=== PATIENT | female | born 1960 | race Caucasian/White ===

== ENCOUNTER 2017-07-21 18:58 | Inpatient (IN) | payer BC, MEDICARE ==
--- NOTE | 2017-07-21 20:05 | ED Physician Chart ---
ED Chief Complaint/HPI - Patient Information Date Seen:: 07/21/17 Time Seen:: 20:12 Chief Complaint:: Chest pain History of Present Illness:: 57 yo female developed neck tightness, right chest pain with pain radiating to back about 2 hours after playing golf and 3 hours prior to ER visit. The patient took nitroglycerin and chest subsided when she presented to ER. She had another episode of chest pain 4 months ago with a negative cardiac work up. Allergies:: Allergies Allergy/AdvReac Type Severity Reaction Status Date / Time No Known Allergies Allergy Verified 07/21/17 19:51 Vitals:: Vital Signs - 8 hr 07/21/17 19:22 Temp 97.6 F HR 101 RR 16 BP 102/62 O2 Sat % 97 ED Review of Systems - Review of Systems General/Constitutional: No fever, No chills Skin: No skin lesions Head: No headache Eyes: No pain ENT: No earache Neck: No neck pain Cardio Vascular: Chest pain Pulmonary: SOB GI: No nausea, No vomiting Musculoskeletal: No bone or joint pain Psychiatric: No prior psych history ED Past Medical History - Past Medical History Past Medical History: HTN, Thyroid disorder, Other (tachycardia, rheumatoid arthritis) Social History: Non Smoker, No Alcohol, No Drug Use Surgical History: Cholecystectomy, other (left total knee replacement, right hip replacement , right shoulder surgery) Family Medical History - Family Member Mother History Unknown: Yes ED Physical Exam - Physical Examination General/Constitutional: Awake, Alert Head: Atraumatic Eyes: PERRL, EOMI Skin: No skin lesions ENMT: Nasal exam nl Other Neck comments:: No significant enlargement of thyroid Respiratory: Clear to Auscultation, No Wheeze/Rhonchi/Rales Cardio Vascular: RRR, No murmur, gallop, rubs, NL S1 S2 GI: No tenderness/rebounding/guarding Extremities: normal strength in all extremities Neuro/Psych: No focal deficits ED Labs/Radiology/EKG Results - Radiology Results Results: CXR: No consolidation ED Assessment - Assessment General Assessment: Chest pain to rule out ACS Hyperlipidemia Assessment/Comments:: CBC, CMP, BNP, Trop I CXR, EKG Admit patient to tele for further work up ED Septic Shock - . Is Septic Shock (SBP<90, OR Lactate>4 mmol\L) present?: No - <6hrs of presentation: Vital Signs: Vital Signs - 8 hr 07/21/17 19:22 Temp 97.6 F HR 101 RR 16 BP 102/62 O2 Sat % 97 ED Reassessment (Disposition) - Reassessment Reassessment Condition:: Improved - Patient Disposition Discharge/Transfer:: Acute Care w/in this hosp Admitting Medical Physician:: Naya Joshi ED Discharge Plan - Patient Disposition Admit/Discharge/Transfer: Acute Care w/in this hosp Condition at Disposition: Improved
[2017-07-21 20:18] LABS: % BASOPHILS 0.5 % (0.0-2.0); % EOSINOPHILS 0.8 % (0.0-5.0); % LYMPHOCYTES 23.7 % (20.0-50.0); % MONOCYTES 8.2 % (2.0-10.0); % NEUTROPHILS 66.8 % (40.0-80.0); BASOPHILE ABSOLUTE 0.1 Th/cumm (0-0.2); EOSINOPHILE ABSOLUTE 0.1 Th/cmm (0.1-0.4); HEMATOCRIT 44.6 % (41.0-60); HEMOGLOBIN 14.9 gm/dL (12-16); LYMPHOCYTE ABSOLUTE 2.8 Th/cmm (1.5-3.0); MEAN CELL VOLUME 96.3 fl (81-100); MEAN CORPUSCULAR HEMOGLOBIN 32.3 pg (27.0-31.0); MEAN CORPUSCULAR HGB CONC 33.5 pg (28.0-36.0); MEAN PLATELET VOLUME 6.6 fl; NEUTROPHILE ABSOLUTE 7.9 Th/cmm (1.8-8.0); PLATELET COUNT 282 Th/cmm (150-400); RED BLOOD COUNT 4.63 Mil/cmm (3.80-5.10); RED CELL DISTRIBUTION WIDTH 12.3 % (11.5-20.0); WHITE BLOOD COUNT 11.9 Th/cmm (4.8-10.8)
[2017-07-21 20:33] LABS: ALB/GLOB RATIO 2.4 (1.0-1.8); ALBUMIN 4.5 gm/dL (3.7-5.3); ALKALINE PHOSPHATASE 55 U/L (34-104); BILIRUBIN,TOTAL 0.3 mg/dL (0.3-1.0); BUN - UREA NITROGEN 15 mg/dL (7-25); CALCIUM SERUM 9.4 mg/dL (8.6-10.3); CARBON DIOXIDE 24.6 mEq/L (21.0-31.0); CHLORIDE 105 mEq/L (98-107); CHOLESTEROL 239 mg/dL (<200); CREATININE - SERUM 0.9 mg/dL (0.6-1.2); GFR AFRICAN-AMERICAN > 60.0 ml/min (>90); GFR NON AFRICAN-AMERICAN > 60.0 ml/min; GLUCOSE 126 mg/dL (70-105); HDL -HIGH DENSITY LIPOPROTEIN 65 mg/dL (23-92); POTASSIUM SERUM 3.6 mEq/L (3.5-5.1); SGOT 13 U/L (13-39); SGPT/ALT 13 U/L (7-52); SODIUM SERUM 137 mEq/L (136-145); TOTAL PROTEIN,SERUM 6.4 gm/dL (6.0-8.3); TRIGLYCERIDES 297 mg/dL (<150)
[2017-07-21 21:07] LABS: URINE MICROSCOPIC INDICATED? YES; URINE SOURCE RANDOM
[2017-07-21 21:19] LABS: URINE BILIRUBIN NEGATIVE (NEGATIVE); URINE BLOOD SMALL (NEGATIVE); URINE GLUCOSE (UA) NEGATIVE (NEGATIVE); URINE KETONE NEGATIVE (NEGATIVE); URINE LEUKOCYTE ESTERASE NEGATIVE (NEGATIVE); URINE NITRATE NEGATIVE (NEGATIVE); URINE PROTEIN NEGATIVE (NEGATIVE); URINE UROBILINOGEN 0.2 E.U./dL (0.2 - 1.0)
[2017-07-21] MEDS ORDERED: Sodium Chloride 0.9% 1,000 ML IV ONE (21:28)
[2017-07-21] MEDS ORDERED: cefTRIAXone 1 GM in Sodium Chloride 0.9% 50 ML IV ONE (21:28)
[2017-07-21 21:38] LABS: URINE CLARITY CLEAR (CLEAR); URINE COLOR YELLOW
[2017-07-21 21:42] LABS: URINE BACTERIA NONE SEEN /hpf (NONE SEEN); URINE EPITHELIAL CELLS NONE SEEN /lpf (FEW); URINE RBC NONE SEEN /hpf (0-5); URINE WBC NONE SEEN /hpf (0-5)
[2017-07-21] MEDS ORDERED: Morphine Sulfate 2 mg/mL 1mL Syr IVP PRN (23:08)
[2017-07-22 04:08] LABS: % BASOPHILS 0.4 % (0.0-2.0); % EOSINOPHILS 1.8 % (0.0-5.0); % LYMPHOCYTES 37.4 % (20.0-50.0); % MONOCYTES 10.6 % (2.0-10.0); % NEUTROPHILS 49.8 % (40.0-80.0); EOSINOPHILE ABSOLUTE 0.1 Th/cmm (0.1-0.4); HEMOGLOBIN 13.4 gm/dL (12-16); LYMPHOCYTE ABSOLUTE 3.1 Th/cmm (1.5-3.0); MEAN CORPUSCULAR HEMOGLOBIN 32.3 pg (27.0-31.0); MEAN CORPUSCULAR HGB CONC 33.6 pg (28.0-36.0); MEAN PLATELET VOLUME 6.5 fl; MONOCYTE ABSOLUTE 0.9 Th/cmm (0.3-1.0); NEUTROPHILE ABSOLUTE 4.1 Th/cmm (1.8-8.0); PLATELET COUNT 256 Th/cmm (150-400); RED BLOOD COUNT 4.14 Mil/cmm (3.80-5.10); RED CELL DISTRIBUTION WIDTH 12.2 % (11.5-20.0)
[2017-07-22 04:13] LABS: WHITE BLOOD COUNT 8.2 Th/cmm (4.8-10.8)
[2017-07-22 04:14] LABS: HEMATOCRIT 39.8 % (41.0-60)
[2017-07-22 04:21] LABS: ANION GAP 9.1 (7.0-16.0); BUN - UREA NITROGEN 13 mg/dL (7-25); CALCIUM SERUM 8.4 mg/dL (8.6-10.3); CHLORIDE 109 mEq/L (98-107); CREATININE - SERUM 0.7 mg/dL (0.6-1.2); CREATININE KINASE 44 U/L (30-223); GFR AFRICAN-AMERICAN > 60.0 ml/min (>90); GFR NON AFRICAN-AMERICAN > 60.0 ml/min; GLUCOSE 91 mg/dL (70-105); POTASSIUM SERUM 4.1 mEq/L (3.5-5.1); SODIUM SERUM 139 mEq/L (136-145)
--- NOTE | 2017-07-22 08:19 | Diagnostic Imaging Report ---
Portable chest x-ray Time: 2015 hours History: Chest pain Allowing for portable technique the heart size is normal. No focal pulmonary parenchymal processes. No hilar or mediastinal abnormalities. Impression: No acute abnormalities.
[2017-07-22] MEDS: Atorvastatin Calcium 10 MG TAB PO SCH (08:58)
[2017-07-22] MEDS: Aspirin 81mg Chewable Tab PO SCH (08:59)
[2017-07-22] MEDS ORDERED: ESTROGENS CONJUGATED 0.9 MG PO SCH (09:00)
[2017-07-22] MEDS ORDERED: PROGESTERONE MICRONIZED 100 MG PO SCH (09:00)
--- NOTE | 2017-07-22 10:27 | History & Physical ---
ADMIT DATE: 07/22/2017 CHIEF COMPLAINT: Neck tightness, right-sided chest pain with radiation to the back and generalized weakness and tiredness. HISTORY OF PRESENT ILLNESS: The patient is a 57-year-old lady with history of hypertension, osteoarthritis/rheumatoid arthritis, history of thyroid goiter, tachycardia who was in her usual state of health until yesterday when she started experiencing the above-mentioned complaints about 2 hours after playing a round of golf. The patient was apparently eating when she started feeling right-sided neck tightness followed by chest pressure and tightness radiating to her right back. She also felt extremely weak and tachycardic, which she on occasions experiences. The patient was given nitro sublingual with improvement in her symptoms. [place] and is currently visiting family members. She did have a similar episode back in [place] about 4 months ago. At that time, she experienced chest pain, 10/10 and ended up having a full cardiac workup, echo and stress test which were negative. She did not have an angiogram at that time. Ten years ago, she also had some chest pains, and at that time she had an angiogram, which was negative. She was diagnosed with cholecystitis and underwent a cholecystectomy. The pertinent findings on admission include a slightly elevated white count of 11.9 and troponins, which are negative x 2 sets. The patient has been admitted to the ICU for close monitoring. She normally takes metoprolol for her tachycardia, but she admits not taking it for a day since she traveled from out of [facility] and was without medications for about a day. PAST MEDICAL HISTORY: As noted above, history of rheumatoid arthritis, hypertension, tachycardic, thyroid disorder with goiter. PAST SURGICAL HISTORY: Cholecystectomy about 10 years ago. She also had a left total knee replacement, right hip replacement and right shoulder surgery. FAMILY HISTORY: Significant for a brother having cardiac disease diagnosed at age 50. He underwent a stent placement. Her father also has been diagnosed with atrial fibrillation. SOCIAL HISTORY: No tobacco, ETOH or illicit drug usage. She used to work as counter person. ALLERGIES: NKDA. OUTPATIENT MEDICATIONS: Tylenol 325 q. 6h. p.r.n. for pain, Premarin 0.9 daily, lorazepam 1 mg b.i.d., metoprolol 200 mg at bedtime, nortriptyline 50 mg at bedtime, Progesterone 100 mg daily, tramadol 50 mg q. 6h. p.r.n. for severe pain, and Effexor XR 300 mg at bedtime. REVIEW OF SYSTEMS: CONSTITUTIONAL: No fever or chills, no recent weight loss. CARDIAC: Please refer to the HPI. PULMONARY: No cough, no phlegm production. GASTROINTESTINAL: No bowel habit changes. GENITOURINARY: No bladder habit changes including no UTI symptomatology. NEUROLOGIC: No changes in vision, no headaches, no syncopal episodes. PHYSICAL EXAMINATION: VITAL SIGNS: Temperature 97.6, pulse 68-74, respirations 13-14, BP 127/76, satting 98% on room air. GENERAL: Well-developed, well-nourished lady, currently eating lunch, not in acute distress, speaking in full sentences. HEAD AND NECK: Normocephalic, atraumatic. Pupils are reactive to light. Extraocular movements are intact. NECK: There is no JVD or LAD. CARDIOVASCULAR: Regular rate and rhythm without any murmurs. RESPIRATORY: Lungs are clear to auscultation bilaterally. EXTREMITIES: Lower extremities: No pedal edema. NEUROLOGIC: Grossly intact. Cranial nerves 2-12 are within normal limits. She is able to move all extremities with equal force and strength. LABORATORY DATA: White count 11.9, currently 8.2, H and H 14/44 with a platelet count of 282. Chemistry was within normal limits. Glucose 126, AST 13, ALT 13, CPK 44. Troponins negative x 2 sets. BNP 6.1, triglycerides 297, cholesterol 239, LDL 155, HDL 65. TSH 0.42. UA shows small blood, otherwise negative. DIAGNOSTICS: Chest x-ray was essentially within normal limits. EKG, sinus rhythm at a rate of 96. There are no ST changes. IMPRESSION: 1. Chest pain, rule out acute coronary syndrome. Risk factors include age, family history and hypertension. Etiologies include chest discomfort secondary to her history of tachycardia or chest wall pain secondary to osteoarthritis or rheumatoid arthritis. 2. History of essential hypertension, which is currently stable. 3. History of tachycardia, currently stable. She is on beta-ciarra, namely metoprolol. 4. Dyslipidemia. 5. Postmenopausal. PLAN: The patient has been admitted to the ICU for close management and monitoring. She has been placed on her medications as scheduled, aspirin 81 every day and I have started her on atorvastatin 20 daily. We will continue to monitor cardiac enzymes. We will ask for a 2D echo as well as a Cardiology consult. JOB# [id number] MTDAnali
--- NOTE | 2017-07-22 20:49 | Consultation ---
DATE OF CONSULTATION: 07/22/[address] Joshi. HISTORY AND PHYSICAL: This is a 57 years old obese female patient, who apparently was playing golf. Following this, the patient at night started complaining of pain in the chest, mostly in the right chest radiating to the back. According to the patient, she has previous episodes of chest pain. The patient had complete evaluation including stress test, which was negative. The patient says she never had an echocardiogram. PAST MEDICAL HISTORY: Chest pain, stress test negative, rheumatoid arthritis, hypertension, hyperlipidemia, hyperthyroid with sinus tachycardia. FAMILY HISTORY: Unremarkable. SOCIAL HISTORY: No history of smoking or alcohol abuse. ALLERGIES: No known allergies. PHYSICAL EXAMINATION: VITAL SIGNS: Blood pressure 130/80, pulse 70, respirations 20. HEAD: Normocephalic. No lumps or bumps. EYES: Pupils equal, reactive to light. Fundi show AV nicking, sclerae white, conjunctivae pink. NECK: Carotid 2+. Normal upstroke. JVD flat. Thyroid not palpable. Lymph nodes not palpable. CHEST: Shows increased AP diameter. No kyphosis, scoliosis. LUNGS: Bilateral bronchovesicular breath sounds. HEART: PMI fifth intercostal space with lateral to midclavicular line. S1, S2. No S3, S4, soft systolic murmur. ABDOMEN: Soft. Liver, spleen not palpable. No organomegaly. Bowel sounds active. NEUROLOGIC: Unremarkable. EXTREMITIES: Peripheral pulses 2+. No pedal edema. CLINICAL IMPRESSION: Atypical chest pain, troponin level normal, rheumatoid arthritis, hypertension, hyperthyroid with multinodular goiter, hyperlipidemia, sinus tachycardia according to the patient may be secondary to hyperthyroid, obesity. PLAN: At the present time, we will get troponin level, EKG, echocardiogram. Since patient's stress test was negative, we will monitor troponin levels prior to discharge. [facility]# [id number]
[2017-07-23 06:48] LABS: HEMOGLOBIN 13.7 gm/dL (12-16); MEAN CELL VOLUME 96.7 fl (81-100); MEAN CORPUSCULAR HEMOGLOBIN 32.3 pg (27.0-31.0); MEAN CORPUSCULAR HGB CONC 33.4 pg (28.0-36.0); MEAN PLATELET VOLUME 6.6 fl; PLATELET COUNT 246 Th/cmm (150-400); RED BLOOD COUNT 4.24 Mil/cmm (3.80-5.10); RED CELL DISTRIBUTION WIDTH 12.4 % (11.5-20.0)
[2017-07-23 07:00] LABS: MANUAL DIFF REQUIRED? YES
[2017-07-23 07:03] LABS: ANION GAP 8.4 (7.0-16.0); BUN - UREA NITROGEN 11 mg/dL (7-25); CALCIUM SERUM 9.1 mg/dL (8.6-10.3); CARBON DIOXIDE 27.6 mEq/L (21.0-31.0); CHLORIDE 107 mEq/L (98-107); CREATININE - SERUM 0.6 mg/dL (0.6-1.2); GFR AFRICAN-AMERICAN > 60.0 ml/min (>90); GFR NON AFRICAN-AMERICAN > 60.0 ml/min; GLUCOSE 84 mg/dL (70-105); SODIUM SERUM 139 mEq/L (136-145)
[2017-07-23 08:10] LABS: T4 FREE 1.29 ng/dL (0.82-1.77); T4 LC 7.6 ug/dL (4.5-12.0)
[2017-07-23 08:48] LABS: BAND NEUTROPHILE 2 % (0-10); EOSINOPHIL 2 % (0-5); LYMPHOCYTE 52 % (20-50); MONOCYTE 4 % (2-10); NEUTROPHILS 40 % (40-80); PLATELET ESTIMATE ADEQUATE (NORMAL); TOTAL CELLS COUNTED 100
[2017-07-23] MEDS ORDERED: PROGESTERONE 100 MG PO SCH (09:00)
[2017-07-23] MEDS: Atorvastatin Calcium 10 MG TAB PO SCH (09:06)
[2017-07-23] MEDS: Aspirin 81mg Chewable Tab PO SCH (09:06)
--- NOTE | 2017-07-23 10:24 | Discharge Summary ---
DATE OF DISCHARGE: 07/23/2017 ADMITTING DIAGNOSES: Chest pain, rule out acute coronary syndrome, and mild leukocytosis. SECONDARY DIAGNOSES: Include history of essential hypertension, history of tachycardia, history of thyroid goiter, and history of dyslipidemia. DISCHARGE DIAGNOSES: Chest pain, resolved. Workup negative for acute coronary syndrome. Leukocytosis, resolved. CONSULTANTS: Korey Carl M.D., Cardiology. MAJOR PROCEDURES: She underwent a 2D-echo, which showed a left ventricular ejection fraction of 50% to 55%. BRIEF HOSPITAL COURSE: The patient is a 57-year-old female with history of hypertension, osteoarthritis/rheumatoid arthritis, thyroid goiter with occasional tachycardia on beta-ciarra, who was presenting from [facility], who started experiencing some right-sided neck tightness and mostly right-sided chest pain about after 2 hours finishing a round of golf. She was apparently eating lunch and she started having the chest pain and also feeling weak, tired and with occasional palpitations. She has apparently had similar episodes in the past, last being about 4 months ago and at that time, she had a full cardiac workup including a stress test and a 2D-echo, which were negative. The patient was admitted to the ICU for chest pain, rule out acute coronary syndrome. She does have a family history of cardiac disease and as noted above hypertension. She denied any other angina type equivalent such as diaphoresis, shortness of breath, nausea, or vomiting. She ruled out with cardiac enzymes and EKGs and her 2D-echo was done with results noted as above. Since admission, she has remained stable with no further episodes of chest pains or palpitations. Pertinent findings on lab work include troponin levels being negative x 4 sets and a triglyceride level of 297 with a cholesterol level of 239, and HDL level of 65. Her thyroid panel was essentially within normal limits. MEDICATIONS ON DISCHARGE: Estradiol 1 mg every day, Tylenol 650 p.r.n. q. 6 hours, Premarin 0.9 every day, lorazepam 1 mg b.i.d., metoprolol 200 mg at bedtime, Pamelor 50 mg at bedtime, progesterone 100 mg every day, tramadol 50 mg q. 6 hours p.r.n. for pain, and Effexor 300 mg at bedtime, aspirin 81 every day, and atorvastatin 20 mg every day, nitro SL 0.4mg q5 mins/prn for cp. DISPOSITION: The patient was discharged home to self-care. I instructed to follow with her primary care doctor within 2-3 days. I also advised her that she might need a cardiology referral for further mgt. [facility]# [id number] BRANDON
--- NOTE | 2017-07-23 16:10 | Cardiology ---
07/22/[address] Joshi. M-MODE ECHOCARDIOGRAM: Mitral valve: Anterior leaflet of mitral valve shows normal excursion, EF velocity. Posterior leaflet of mitral valve shows normal excursion. Left ventricular posterior wall shows increased thickness, normal excursion. Interventricular septum shows increased thickness, normal excursion, hypertrophy of the left ventricle, ejection fraction is 50%. Left atrium normal. Aortic root shows normal dimension, normal excursion of aortic leaflets. CONCLUSION: Hypertrophy of the left ventricle, ejection fraction 50%. 2D ECHO: Long axis view showed normal sized left ventricle with hypertrophy of the left ventricle. Left atrium normal. Aortic root shows normal dimension, normal excursion of aortic leaflets. Short axis view of mitral valve normal. Short axis view of aortic valve normal. Apical four-chamber view showed normal sized left ventricle, left atrium, right ventricle, right atrium, tricuspid and mitral valve, hypertrophy of the left ventricle, ejection fraction 50%. Doppler study showed trace tricuspid regurgitation, prominent area consistent with full compliance of left ventricle. [facility]# [id number]
== END 2017-07-23 11:25 | disposition home or self-care (01) | DRG 313 ==
LOC: ER 18:58 → ICU 23:30 → TELE 07-22 15:15
PROVIDERS: ADMIT Internal Medicine; ATTEND Internal Medicine
DX: R07.89 Other chest pain (principal); D72.829 Elevated white blood cell count, unspecified; E05.90 Thyrotoxicosis, unspecified without thyrotoxic crisis or storm; E78.5 Hyperlipidemia, unspecified; I10 Essential (primary) hypertension; N95.9 Unspecified menopausal and perimenopausal disorder; R00.0 Tachycardia, unspecified; M19.90 Unspecified osteoarthritis, unspecified site; M06.9 Rheumatoid arthritis, unspecified; E66.8 Other obesity; Z68.37 Body mass index [BMI] 37.0-37.9, adult; Z90.49 Acquired absence of other specified parts of digestive tract
CPT/HCPCS: 36415-UA; 71045-TC; 80048-TC; 80053-TC; 80061-TC; 81001-TC; 82550-TC; 83880-TC; 84436-90; 84439-90; 84443-TC; 84484-TC; 85007-TC; 85025-TC; 85027-TC; 93005; J0696; J7030; Z7610